=== PATIENT | male | born 1980 | race African-American/Black ===

== ENCOUNTER 2019-07-31 19:03 | Emergency (ER) | payer OTHER ==
[~2019-07-31] VITALS: Ht 177.8 cm; Wt 120.2 kg
[2019-07-31] MEDS ORDERED: NOHOMEMEDICATIONS (19:11)
[2019-07-31] MEDS ORDERED: MEDROLDOSEPACK PO (20:40)
[2019-07-31] MEDS ORDERED: VALIUM5 MG PO (20:40)
[2019-07-31 20:49] VITALS: BP 177/90
== END 2019-07-31 21:27 | disposition home or self-care (01) ==
LOC: ER 19:03
DX: M62.830 Muscle spasm of back (principal); M25.551 Pain in right hip